=== PATIENT | female | born 1935 | race African-American/Black ===

== ENCOUNTER 2017-05-02 12:37 | Outpatient (CLI) | payer MEDICARE, MEDICAID ==
--- NOTE | 2017-05-02 13:10 | RAD ---
RADIOGRAPH CHEST 2 VIEWS: DATE: 05-02-17 HISTORY: 81-year-old female with dyspnea. FINDINGS: There is hyperinflation of the lungs, consistent with COPD. The thoracic aorta is tortuous and ectat ic. There is no evidence of air space density, pneumothorax, or pulmonary edema. There is no cardio megaly or pleural effusion. The right upper lobe 2.5 cm pulmonary mass is unchanged compared to 7. There is no interval change overall. IMPRESSION: 1) No acute cardiopulmonary findings. 2) Emphysema. 3) Ectasia of thoracic aorta. 4) Stable 2.5 cm right upper lobe pulmonary mass. rivas POS: KASEY
== END 2017-05-02 12:38 | disposition home or self-care (01) ==
LOC: RAD 12:37
PROVIDERS: ATTEND Internal Medicine Pulmonary Disease
DX: R06.00 Dyspnea, unspecified (principal); J43.9 Emphysema, unspecified; I77.810 Thoracic aortic ectasia; R91.8 Other nonspecific abnormal finding of lung field
CPT/HCPCS: 71046

== ENCOUNTER 2018-12-12 11:11 | Inpatient (IN) | payer MEDICARE, MEDICAID ==
[2018-12-12 11:44] LABS: #Eosinphils 0.1 thou/uL (0.0-0.7); #Lymphocytes 2.1 thou/uL (1.20-3.40); #Monocytes 0.6 thou/uL (0.11-0.59); #Neutrophils 7.4 thou/uL (1.40-6.50); %Basophils 0.3 % (0.0-1.0); %Eosinophils 1.1 % (0.0-10.0); %Lymphocytes 20.2 % (21.0-51.0); %Monocytes 5.5 % (0.0-10.0); Hemoglobin 12.1 g/dL (12.0-16.0); Mean Corpuscular HGB CONC 33.5 g/dL (32.0-36.0); Mean Corpuscular Hemoglobin 31.4 pg (27.0-31.0); Mean Corpuscular Volume 93.6 fL (78.0-98.0); Mean Platelet Volume 6.1 fL (7.4-10.4); Platelet Count 278 thou/uL (130-400); RBC Distribution Width 12.2 % (11.5-14.5); Red Blood Cell (RBC) Count 3.85 mill/uL (4.20-5.40); White Blood Cell (WBC) Count 10.2 thou/uL (4.8-10.8)
[2018-12-12] MEDS ORDERED: Morphine 4 MG/ML VIAL ONE (11:44)
[2018-12-12] MEDS ORDERED: Ketamine 50 MG/ML (10ML VIAL) ONE (12:05)
[2018-12-12 12:12] LABS: ALT (SGPT) 15 U/L (8-55); AST (SGOT) 29 U/L (5-34); Albumin 3.8 g/dL (3.4-4.8); Alkaline Phosphatase 143 U/L (40-150); Anion Gap 8 mmol/L (10-20); BUN (Urea Nitrogen) 15 mg/dL (9.8-20.1); Bilirubin, Total 0.3 mg/dL (0.2-1.2); Calc. Creatinine Clearance 0 mL/min (70-130); Calcium 8.9 mg/dL (7.8-10.44); Carbon Dioxide 29 mmol/L (23-31); Chloride 104 mmol/L (98-107); Estimated GFR-MDRD 79; Globulin 3.4 g/dL (2.4-3.5); Glucose 121 mg/dL (83-110); Potassium 3.8 mmol/L (3.5-5.1); Protein, Total 7.2 g/dL (6.0-8.3); Sodium 137 mmol/L (136-145)
--- NOTE | 2018-12-12 12:46 | RAD ---
EXAM: Portable supine chest PROVIDED CLINICAL HISTORY: Dyspnea COMPARISON: 05/02/2017 FINDINGS: Cardiac silhouette appears prominent, likely least partially on the basis of portable technique. Inte rval enlargement of the right suprahilar pulmonary nodule with surrounding mass/consolidation. Evaluation for pleural fluid or pneumothorax is limited given the supine nature of the study. IMPRESSION: Enlargement of right suprahilar pulmonary nodule with surrounding consolidation/mass. Correlation wit h CT recommended.
--- NOTE | 2018-12-12 12:47 | RAD ---
EXAM: XR Pelvis AP STANDARD PROVIDED CLINICAL HISTORY: Pain COMPARISON: 09/13/2018 FINDINGS: Interval development of displaced intertrochanteric right proximal femoral fracture. Age-indeterminat e right superior and inferior pubic rami fractures. Right hip joint space appears preserved. Prominent coxa varum. IMPRESSION: 1. Displaced intertrochanteric right proximal femoral fracture. 2. Age-indeterminate right superior and inferior pubic rami fractures.
[2018-12-12] MEDS ORDERED: Clindamycin/D5W 900 MG in Premix Bag 1 BAG IVPB SCH (14:15)
--- NOTE | 2018-12-12 14:46 | CON ---
DATE OF CONSULTATION: 12/12/2018 This is Areli Fuentes PA-C dictating a report for Zackery Cook MD. REQUESTING PHYSICIAN: Trauma Services. CONSULTING PHYSICIAN: Zackery Cook MD REASON FOR CONSULTATION: Right hip fracture. HISTORY OF PRESENT ILLNESS: This is an 83-year-old female who currently resides at the [facility]. She states that she was walking today, pushing a rolling type of walker with a seat on it when she suffered a mechanical fall. She denies any head injury or loss of consciousness. She was brought to emergency facility by ground EMS. Workup there revealed a right hip fracture. We have been consulted for this reason. Currently at bedside. The patient states that she has right hip pain, which is worse with any sort of movement. She had great difficulty with x-rays today. Denies any numbness or tingling in the right lower extremity. Denies any other extremity pain at this time. PAST MEDICAL HISTORY: Significant for insomnia, Raynaud's, acid reflux, depressive disorder, and breast cancer in 2012. PAST SURGICAL HISTORY: Significant for cholecystectomy and mastectomy, right breast. SOCIAL HISTORY: The patient states that she lives at the [facility]. She has been there for quite some time. She has several children in the area. She denies any history of illicit drug use or smoking cigarettes, but does state that she has chewed tobacco in the past. FAMILY HISTORY: Reviewed and noncontributory. REVIEW OF SYSTEMS: A 10-point review of systems conducted and otherwise negative except for stated above. ALLERGIES: INCLUDE PENICILLIN. PHYSICAL EXAMINATION: VITAL SIGNS: Blood pressure 176/91, pulse of 75, respiratory rate of 18, temperature 98.4, and O2 saturation is 100% on 2 L nasal cannula oxygen. GENERAL: The patient is an awake and alert. She is in no apparent distress. She is lying supine and in the ER on a stretcher at this time. There is no family at bedside. She is appropriate with exam findings today. HEENT: Head is normocephalic and atraumatic. NECK: Supple. Trachea midline. Breathing is nonlabored. EXTREMITIES: The right lower extremity was noted to be shortened. There is no ecchymosis or lesions to this thigh. SKIN: Intact. She is able to wiggle her toes. Reports sensation intact distally. Capillary refill 3 seconds. RADIOGRAPHIC FINDINGS: Including an AP pelvis taken in the ER today demonstrates an intertrochanteric right femur fracture. It also appears that there are old superior and inferior pubic rami fractures on the right side. Dedicated hip films were not obtained secondary to patient's discomfort. ASSESSMENT: Right hip intertrochanteric femur fracture. PLAN: At this time, the patient has been admitted to the Trauma Services. She will be n.p.o. after midnight. We would like to proceed with surgery in the morning including a trochanteric nail to restore function and promote mobility in this patient. She will work physical and occupational therapy postoperatively. We will get this set up for her in the morning. All questions have been answered at this time. Job ID: [id number]
--- NOTE | 2018-12-12 14:55 | HP ---
REQUESTING PHYSICIAN: Dr. Minor. ATTENDING SURGEON: Dr. Rodrigez. CONSULTATIONS: Orthopedics, Dr. Cook. HISTORY OF PRESENT ILLNESS: The patient is an 83-year-old woman, who [facility]. She was ambulating with her rolling walker today when she lost her balance and fell landing on her right hip. The patient was brought to the emergency department, underwent evaluation and examination, was noted to have a right intertrochanteric femur fracture and we were asked to evaluate the patient and obtain Orthopedic consultation. The patient had no reported loss of consciousness and denies hitting her head. The patient's only complaint is her right hip pain. ALLERGIES: PENICILLIN. CURRENT MEDICATIONS: Celexa, ibuprofen, Remeron, Tylenol, arthritis, and meclizine. PAST MEDICAL HISTORY: Breast cancer, seizure disorder, gastroesophageal reflux disease, insomnia, and Raynaud phenomenon. History of hypertension. PAST SURGICAL HISTORY: Cholecystectomy and mastectomy of right breast. SOCIAL HISTORY: The patient [facility] a jail. She ambulates with assistance utilizing a walker. She denies drug or alcohol use and previously had chewed tobacco and dipped. REVIEW OF SYSTEMS: A 10-point review of systems is negative as otherwise stated. PHYSICAL EXAMINATION: VITAL SIGNS: Blood pressure 176/91, heart rate 75, respirations are 18, oxygen saturation 100% on 2 L via nasal cannula, and temperature is 98.4. GENERAL: The patient is resting comfortably in bed. She is awake, alert, and responsive. Manisha Coma Scale is 15. HEENT: Normocephalic and atraumatic. Eyes; extraocular motion intact. PERRLA bilaterally. Ears are atraumatic without discharge. Nose is atraumatic without discharge. Oropharynx is clear. NECK: Nontender. Trachea is midline. No JVD. CHEST: Clear to auscultation with good inspiratory and expiratory effort. HEART: Regular rate and rhythm. ABDOMEN: Soft, flat, and nontender with active bowel sounds. PELVIS: Stable with tenderness to palpation to right hip consistent with her fracture. EXTREMITIES: Neurovascularly intact x4. BACK: By report is atraumatic and nontender. LABORATORY FINDINGS: White blood cell count 10.2, hemoglobin 12.1, hematocrit 36.0, and platelets are 278. Sodium 137, potassium 3.8, chloride 108, CO2 of 29, BUN 15, creatinine 0.83, and glucose 121. LFTs are unremarkable. Coags are pending. RADIOGRAPHIC REPORTS: AP chest shows an enlargement of a known right suprahilar pulmonary nodule with surrounding consolidation/mass. AP pelvis shows displaced intertrochanteric right proximal femur fracture, age indeterminate right superior inferior pubic rami fractures. ASSESSMENT: 1. Status post ground level fall. 2. Right hip fracture. 3. Acute pain secondary to above. 4. History of hypertension. 5. Gastroesophageal reflux disease. 6. Raynaud phenomenon. PLAN: Plan will be to admit the patient to the surgical floor. Per discussion with Orthopedics, the plan will be to take her to the operating room tomorrow. She will be made n.p.o. at midnight. Otherwise, she will have pain control, pulmonary toilet, gastritis, and mechanical VTE prophylaxis. We will find out who her fire truck driver is in regard to her lung mass. The evaluation, examination, laboratory, and radiographic findings were discussed with Dr. Rodrigez prior to this dictation. Job ID: [id number]
[2018-12-12] MEDS ORDERED: Dextrose 50% Abboject 50 ML SYRINGE SLOW IVP PRN (15:21)
[2018-12-12] MEDS ORDERED: Morphine 2 MG/ML SYRINGE SLOW IVP PRN (15:21)
[2018-12-12] MEDS ORDERED: hydrALAZINE 20 MG/ML VIAL SLOW IVP PRN (15:21)
[2018-12-12] MEDS ORDERED: Ondansetron ODT 4 MG TAB PO PRN (15:21)
[2018-12-12] MEDS ORDERED: Morphine 4 MG/ML VIAL SLOW IVP PRN (15:21)
[2018-12-12] MEDS ORDERED: Cyclobenzaprine 10 MG TAB PO PRN (15:21)
[2018-12-12] MEDS ORDERED: Ondansetron PF 4 MG/2 ML Vial IVP PRN (15:21)
[2018-12-12] MEDS ORDERED: traMADol HCl 50 MG TAB PO PRN ×2 (15:21)
[2018-12-12] MEDS ORDERED: Dextrose 5% in Water 1,000 ML IV PRN (15:21)
[2018-12-12 15:57] LABS: PTT 27.1 SEC (22.9-36.1); Prothrombin Time 13.4 SEC (12.0-14.7)
[2018-12-12] MEDS: Acetaminophen 1,000 MG in Premix Bag 1 BAG IVPB SCH ×2 (17:02→23:16)
[2018-12-12 18:27] VITALS: BMI 30.1
[2018-12-12] MEDS: Famotidine 20 MG TAB PO SCH (19:59)
[2018-12-12] MEDS ORDERED: Melatonin 3 MG TAB PO SCH (22:15)
[2018-12-12] MEDS: Sodium Chloride 0.9% 1,000 ML IV SCH (23:17)
--- NOTE | 2018-12-13 01:24 | PRG ---
DATE OF SERVICE: 12/13/2018 SUBJECTIVE: Ms. Alexandre is an 83-year-old female, coming for evaluation. She is status post ground level fall. She sustained right hip fracture. She was consulted by Orthopedics, in which she will be taken to the OR tomorrow for ORIF of right hip fracture. The patient reports doing good. Pain is well controlled. She developed no fever or shortness of breath. OBJECTIVE: GENERAL: She is lying down in bed, comfortable, with no acute distress. VITAL SIGNS: Stable. LUNGS: Clear bilaterally. HEART: Regular rate and rhythm. ABDOMEN: Soft, nondistended. EXTREMITIES: Neurovascularly intact x4. Right hip limited range of motion due to pain. NEUROLOGIC: No neurology deficits. PLAN: Will be to continue supportive care. Continue non-pharmacology DVT prophylaxis, gastritis prophylaxis, pulmonary toilet. She is to continue n.p.o. and prepare for surgery tomorrow. Job ID: [id number]
[2018-12-13] MEDS: Acetaminophen 1,000 MG in Premix Bag 1 BAG IVPB SCH ×2 (04:51→11:45)
[2018-12-13 06:32] LABS: #Eosinphils 0.1 thou/uL (0.0-0.7); #Lymphocytes 2.9 thou/uL (1.20-3.40); #Monocytes 0.7 thou/uL (0.11-0.59); #Neutrophils 5.7 thou/uL (1.40-6.50); %Basophils 0.4 % (0.0-1.0); %Eosinophils 1.3 % (0.0-10.0); %Lymphocytes 30.5 % (21.0-51.0); %Monocytes 7.8 % (0.0-10.0); Hemoglobin 11.3 g/dL (12.0-16.0); Mean Corpuscular HGB CONC 33.2 g/dL (32.0-36.0); Mean Corpuscular Hemoglobin 31.5 pg (27.0-31.0); Mean Corpuscular Volume 94.9 fL (78.0-98.0); Mean Platelet Volume 6.1 fL (7.4-10.4); Platelet Count 252 thou/uL (130-400); RBC Distribution Width 12.2 % (11.5-14.5); White Blood Cell (WBC) Count 9.5 thou/uL (4.8-10.8)
[2018-12-13 06:52] LABS: Anion Gap 11 mmol/L (10-20); BUN (Urea Nitrogen) 10 mg/dL (9.8-20.1); Calc. Creatinine Clearance 65 mL/min (70-130); Calcium 8.5 mg/dL (7.8-10.44); Carbon Dioxide 25 mmol/L (23-31); Chloride 104 mmol/L (98-107); Estimated GFR-MDRD 87; Glucose 106 mg/dL (83-110); Magnesium 1.8 mg/dL (1.6-2.6); Phosphorus 2.5 mg/dL (2.3-4.7); Potassium 3.8 mmol/L (3.5-5.1); Sodium 136 mmol/L (136-145)
[2018-12-13] MEDS ORDERED: Clindamycin/D5W 900 mg/50 ml Premix Bag ONE (08:45)
[2018-12-13] MEDS ORDERED: Fentanyl 100 MCG/2 ML VIAL ONE ×2 (09:09→10:41)
[2018-12-13] MEDS ORDERED: Fleet Enema 133 ML BOT PR PRN (10:20)
[2018-12-13] MEDS ORDERED: Bisacodyl 10 MG SUPP PR PRN (10:20)
[2018-12-13] MEDS ORDERED: Ondansetron PF 4 MG/2 ML Vial IVP PRN (10:20)
[2018-12-13] MEDS ORDERED: Cepastat Lozenges 1 LOZ PO PRN (10:20)
[2018-12-13] MEDS ORDERED: Ondansetron ODT 4 MG TAB PO PRN (10:20)
[2018-12-13] MEDS ORDERED: Milk Of Magnesia 30 ML UDCUP PO PRN (10:20)
[2018-12-13] MEDS ORDERED: ePHEDrine 50 MG/ML VIAL ONE (10:22)
[2018-12-13] MEDS ORDERED: Dexamethasone 20 MG/5 ML VIAL ONE (10:22)
[2018-12-13] MEDS ORDERED: Rocuronium Bromide 10 MG/ML (10ML VIAL) ONE (10:22)
[2018-12-13] MEDS ORDERED: PROPOFOL 200 MG/20 ML VIAL ONE (10:22)
[2018-12-13] MEDS ORDERED: Ondansetron PF 4 MG/2 ML Vial ONE (10:22)
[2018-12-13] MEDS ORDERED: Lidocaine 1% PF 5 ML VIAL ONE (10:22)
[2018-12-13] MEDS ORDERED: Glycopyrrolate 0.2 MG/ML 5 ML SYRINGE ONE (10:22)
[2018-12-13] MEDS ORDERED: Aspirin 81 mg Enteric Coated Tablet PO SCH (10:30)
--- NOTE | 2018-12-13 10:35 | RAD ---
EXAM: XR Hip Rt 2-3 View PROVIDED CLINICAL HISTORY: ORIF COMPARISON: 12/12/2018 FINDINGS: Interval retrograde intramedullary nail with proximal and distal interlocking screws transfixing prev iously described intertrochanteric right proximal femoral fracture with resultant improved alignment. IMPRESSION: As above.
[2018-12-13] MEDS ORDERED: Promethazine HCl 25 MG/ML VIAL SLOW IVP PRN (10:42)
[2018-12-13] MEDS ORDERED: PACU-Morphine 4MG/ML VIAL SLOW IVP PRN (10:42)
[2018-12-13] MEDS ORDERED: Morphine Sulfate 2 MG/ML SYRINGE SLOW IVP PRN (10:42)
[2018-12-13] MEDS ORDERED: Ondansetron HCl/PF 4 MG/2 ML Vial IVP PRN (10:42)
[2018-12-13] MEDS ORDERED: HYDROmorphone 2 MG/ML VIAL SLOW IVP PRN (10:42)
[2018-12-13] MEDS ORDERED: Promethazine HCl 25 MG/ML VIAL IM PRN (10:42)
[2018-12-13] MEDS ORDERED: Ketorolac Tromethamine 30 MG/ML VIAL IVP PRN (10:42)
[2018-12-13] MEDS ORDERED: Meperidine HCl/PF 25 MG/ML VIAL SLOW IVP PRN (10:42)
[2018-12-13] MEDS: Famotidine 20 MG TAB PO SCH ×2 (11:45→20:02)
[2018-12-13] MEDS: Sodium Chloride 0.9% 1,000 ML IV SCH (11:46)
[2018-12-13] MEDS: Clindamycin/D5W 900 MG in Premix Bag 1 BAG IVPB SCH ×2 (15:35→20:01)
--- NOTE | 2018-12-13 15:40 | PRG ---
DATE OF SERVICE: 12/13/2018 SUBJECTIVE: The patient is hospital day 2, immediately postop status post a ground level fall, in which she sustained a right hip fracture. She has undergone open reduction and internal fixation of same. She reportedly tolerated this procedure well. She had no reported issues overnight. This morning, she is still sleepy as having just arrived back from the PACU. OBJECTIVE: VITAL SIGNS: Temperature 97.7, heart rate 73, blood pressure 154/71, respirations 16, and oxygen saturations 100% on 2 L via nasal cannula. GENERAL: The patient is resting comfortably in bed. She appears in no distress. She is sleepy, but will awaken with verbal stimuli and appears appropriate. HEENT: Unremarkable. LUNGS: Clear to auscultation with moderate inspiratory and expiratory effort. Again, the patient is not following commands fully just yet. HEART: Regular rate and rhythm. ABDOMEN: Soft, flat, nontender with active bowel sounds. EXTREMITIES: Neurovascularly intact x4. Postop dressings are clean, dry, and intact. LABORATORY FINDINGS: White blood cell count 9.5, hemoglobin 11.3, hematocrit 34.2, and platelets 252. Sodium 136, potassium 3.8, chloride 104, CO2 of 25, BUN 10, creatinine 0.77, glucose 106, magnesium 1.8, and phosphorus 2.5. IMAGING STUDIES: There are no radiographs reviewed this morning. ASSESSMENT AND PLAN: 1. Status post ground level fall. 2. Status post open reduction and internal fixation of right hip fracture. 3. Acute pain secondary to above. 4. History of hypertension. 5. History of gastroesophageal reflux disease. 6. History of Raynaud phenomenon. Plan will be to continue supportive care, diet, p.o. pain medication, and begin working with Physical and Occupational Therapy. We will discuss placement options with Case Management. The patient was evaluated this morning with Dr. Rodrigez. Job ID: [id number]
[2018-12-13] MEDS: Acetaminophen 500 MG TAB PO SCH ×2 (18:43→23:21)
[2018-12-13] MEDS: Ferrous Gluconate 324 MG TAB PO SCH (20:01)
[2018-12-13] MEDS: Aspirin 81 mg Enteric Coated Tablet PO SCH (20:01)
[2018-12-13] MEDS: Senokot S 8.6-50 MG TAB PO SCH (20:02)
[2018-12-13] MEDS: Mirtazapine 15 MG TAB PO SCH (20:02)
[2018-12-13] MEDS ORDERED: diphenhydrAMINE 50 MG/ML VIAL IVP SCH (22:00)
--- NOTE | 2018-12-14 00:05 | PRG ---
DATE OF SERVICE: 12/13/2018 SUBJECTIVE: Ms. Alexandre is an 83-year-old female status post ground level fall. She sustained right hip fracture. She underwent ORIF of right hip fracture today. This evening when I had seen her, she developed delirium. She was getting angry and did not want to have the VTE device on. She did not want her sock to be on. She wanted to get out of bed and walk around. She had some sort of hallucination when she said that she hears somebody out of the door and combative. Fall precaution order was on. She was given 25 mg Benadryl IV. She has been stable after that. OBJECTIVE: VITAL SIGNS: Stable. LUNGS: Clear bilaterally. HEART: Regular rate and rhythm. ABDOMEN: Soft, nondistended. EXTREMITIES: The patient moves all 4 extremities. NEURO: No focal neurology deficits, but reveals dressing of right hip was loose. The patient will be . PLAN: Will be to continue supportive care. We will discontinue tramadol due to possibility tramadol might cause delirium in postoperative patients and continue fall precaution. Job ID: [id number]
[2018-12-14] MEDS: Acetaminophen 500 MG TAB PO SCH ×3 (06:40→17:44)
[2018-12-14 07:32] LABS: Hemoglobin 10.8 g/dL (12.0-16.0); Mean Corpuscular HGB CONC 32.9 g/dL (32.0-36.0); Mean Corpuscular Volume 94.3 fL (78.0-98.0); Mean Platelet Volume 6.3 fL (7.4-10.4); Platelet Count 258 thou/uL (130-400); RBC Distribution Width 12.2 % (11.5-14.5); Red Blood Cell (RBC) Count 3.49 mill/uL (4.20-5.40); White Blood Cell (WBC) Count 12.8 thou/uL (4.8-10.8)
[2018-12-14] MEDS ORDERED: Meclizine HCl 12.5 MG TAB PO PRN (07:49)
[2018-12-14 07:54] LABS: Anion Gap 11 mmol/L (10-20); BUN (Urea Nitrogen) 13 mg/dL (9.8-20.1); Calc. Creatinine Clearance 61 mL/min (70-130); Calcium 8.9 mg/dL (7.8-10.44); Carbon Dioxide 27 mmol/L (23-31); Chloride 103 mmol/L (98-107); Estimated GFR-MDRD 81; Glucose 100 mg/dL (83-110); Potassium 3.9 mmol/L (3.5-5.1); Sodium 137 mmol/L (136-145)
[2018-12-14] MEDS: Famotidine 20 MG TAB PO SCH ×2 (08:41→20:43)
[2018-12-14] MEDS: Aspirin 81 mg Enteric Coated Tablet PO SCH ×2 (08:41→20:42)
[2018-12-14] MEDS: Ferrous Gluconate 324 MG TAB PO SCH ×2 (08:41→20:43)
[2018-12-14] MEDS: Multivitamin W/ Minerals 1 TAB PO SCH (08:41)
[2018-12-14] MEDS: Citalopram 20 MG TAB PO SCH (08:41)
[2018-12-14] MEDS: Senokot S 8.6-50 MG TAB PO SCH ×2 (08:41→20:43)
[2018-12-14] MEDS: Ibuprofen 600 MG TAB PO PRN ×2 (12:28→20:43)
--- NOTE | 2018-12-14 19:09 | PRG ---
DATE OF SERVICE: 12/14/2018 SUBJECTIVE: The patient is hospital day , postop day #1, status post ground level fall when she sustained a right hip fracture. Yesterday, she underwent open reduction and internal fixation of same. She tolerated that well. Overnight, she had some issues with being disoriented and reportedly pulled her Wilburn catheter out. After being given some IV Benadryl, the patient was able to relax and rest for the remainder of the night. This morning, there were no reported issues. The patient has voided without any hematuria noted, and she states this morning that her pain is controlled. At the time of my visit, she has not eaten breakfast yet. OBJECTIVE: VITAL SIGNS: Temperature is 98.9, heart rate 67, blood pressure 112/70, respirations 18, and oxygen saturation 95% on room air. GENERAL: The patient is resting comfortably in bed. She is awake, oriented, and appropriate. HEENT: Unremarkable. LUNGS: Clear to auscultation with good inspiratory and expiratory effort. HEART: Regular rate and rhythm. ABDOMEN: Soft, flat, nontender with active bowel sounds. EXTREMITIES: Neurovascularly intact x4. Postop dressing is clean, dry, and intact. LABORATORY FINDINGS: White blood cell count 12.8, hemoglobin 10.8, hematocrit 32.9, and platelets 258. Sodium 137, potassium 3.9, chloride 103, CO2 of 27, BUN 13, creatinine 0.82, and glucose 100. There are no radiographs reviewed this morning. ASSESSMENT AND PLAN: 1. Status post ground level fall, hospital day . 2. Status post open reduction and internal fixation of right hip fracture, postop day #1. 3. Acute pain secondary to above. 4. History of hypertension, gastroesophageal reflux disease, Raynaud phenomena. Plan will be to continue supportive care, physical and occupational therapy, and we will discuss placement with Case Management tomorrow to see what options are available for the patient as she came from a long-term. Job ID: [id number]
[2018-12-14] MEDS: Mirtazapine 15 MG TAB PO SCH (20:43)
[2018-12-14] MEDS: Melatonin 3 MG TAB PO SCH (20:44)
--- NOTE | 2018-12-15 00:56 | PRG ---
DATE OF SERVICE: 12/15/2018 SUBJECTIVE: Ms. Alexandre is an 83-year-old female, status post ground level fall. She sustained right hip fracture. She underwent ORIF of right hip fracture yesterday. Last night, she developed delirium, however, today she is getting better. She do not have any hallucination or irritation. OBJECTIVE: GENERAL: She is lying down in bed, comfortably with no acute distress. VITAL SIGNS: Stable. LUNGS: Clear bilaterally. HEART: Regular rate and rhythm. ABDOMEN: Soft and nondistended. EXTREMITIES: Neurovascularly intact x4. NEUROLOGIC: No focal neurology deficits. PLAN: Will be continue supportive care. Continue pain control. The patient's bilingual case manager will be working with her to determine if her old snf facility have physical therapy, so she can go back, bilingual case manager needs to find a new [facility]ci facility for her. Job ID: [id number]
[2018-12-15] MEDS: Acetaminophen 500 MG TAB PO SCH ×5 (01:16→23:46)
[2018-12-15] MEDS: Ibuprofen 600 MG TAB PO PRN ×3 (05:36→23:47)
[2018-12-15 07:18] LABS: Phosphorus 2.7 mg/dL (2.3-4.7)
[2018-12-15 07:20] LABS: Mean Corpuscular HGB CONC 33.5 g/dL (32.0-36.0); Mean Corpuscular Hemoglobin 31.2 pg (27.0-31.0); Mean Corpuscular Volume 93.4 fL (78.0-98.0); Mean Platelet Volume 6.5 fL (7.4-10.4); Platelet Count 262 thou/uL (130-400); RBC Distribution Width 12.1 % (11.5-14.5); Red Blood Cell (RBC) Count 3.51 mill/uL (4.20-5.40); White Blood Cell (WBC) Count 10.8 thou/uL (4.8-10.8)
[2018-12-15 07:24] LABS: Anion Gap 12 mmol/L (10-20); BUN (Urea Nitrogen) 16 mg/dL (9.8-20.1); Calc. Creatinine Clearance 59 mL/min (70-130); Calcium 9.3 mg/dL (7.8-10.44); Carbon Dioxide 28 mmol/L (23-31); Chloride 103 mmol/L (98-107); Estimated GFR-MDRD 77; Glucose 90 mg/dL (83-110); Magnesium 1.9 mg/dL (1.6-2.6); Potassium 3.6 mmol/L (3.5-5.1); Sodium 139 mmol/L (136-145)
[2018-12-15] MEDS: Famotidine 20 MG TAB PO SCH ×2 (08:57→20:13)
[2018-12-15] MEDS: Senokot S 8.6-50 MG TAB PO SCH ×2 (08:57→20:13)
[2018-12-15] MEDS: Aspirin 81 mg Enteric Coated Tablet PO SCH ×2 (08:58→20:13)
[2018-12-15] MEDS: Multivitamin W/ Minerals 1 TAB PO SCH (08:58)
[2018-12-15] MEDS: Ferrous Gluconate 324 MG TAB PO SCH ×2 (08:58→20:14)
[2018-12-15] MEDS: Citalopram 20 MG TAB PO SCH (08:58)
--- NOTE | 2018-12-15 10:45 | OP ---
DATE OF PROCEDURE: 12/13/2018 DIE STAMPER: Codey Shields PA-C PREOPERATIVE DIAGNOSIS: Right intertrochanteric hip fracture. POSTOPERATIVE DIAGNOSIS: Right intertrochanteric hip fracture. PROCEDURE PERFORMED: Right intertrochanteric fracture, internal fixation with Synthes trochanteric femoral nail, 10 mm diameter with a 105 lag screw and a 34 locking screw. ESTIMATED BLOOD LOSS: Minimal. SPECIMENS: None. DRAINS: None. COMPLICATIONS: None. PROCEDURE IN DETAIL: After informed consent was obtained in the preoperative holding area, the patient was taken to the operative suite and positioned appropriately on the fracture table. Spinal anesthetic was placed and the right hip was then prepped and draped in the usual sterile fashion. Prior to incision, a time-out was called and all members of surgical team agreed upon site, surgeon, and patient. Patient also received preoperative antibiotics prior to incision. Once this was confirmed, fluoroscopy was brought into the field and we evaluated the reduction. The fracture table was used with inline longitudinal traction and adduction to appropriately reduce the fracture. Once we were happy with near anatomic reduction, we then made a linear incision 2 fingerbreadths above the greater trochanter noted by palpation. The subcutaneous layers were opened sharply. I encountered the IT band. This was incised sharply and blunt dissection using a finger was then carried down to the trochanter which was noted by palpation. We used a guidepin to enter the posterior 2/3 of the greater trochanter. Guidepin was then used to enter the canal, over reamed with a 15 mm entry reamer. Once this was established, the prosthesis was then slid down into place and malleted gently to the adequate height and noted with fluoroscopy. The lateral entry outrigger was then placed and we used a 2-incision technique to establish the hip screw fixation point. A guidepin was then placed into the femoral head using the outrigger. The measurement was taken. The appropriate size was chosen. Lateral entry broaching reamer was then used using the outrigger and the final screw was then placed. The anti-rotational gate was then closed and the distal interlocking screw was placed for final construct, which appeared near anatomic on radiographs. Both incisions (2-incision technique) were copiously irrigated with normal saline. Primary closure was accomplished with #1 Vicryl at the IT band. Subcutaneous layer was closed with 2-0 Vicryl, and stainless steel refugio were used to reapproximate the skin. Final x-rays demonstrated near anatomic reduction, good hardware fixation. The procedure was terminated without any complications. The patient was taken to recovery room in stable condition. Job ID: [id number]
--- NOTE | 2018-12-15 14:38 | PRG ---
DATE OF SERVICE: 12/15/2018 SUBJECTIVE: The patient is postop day 2, status post ORIF of right hip after right hip fracture from a ground level fall. She is better overnight with irritation. With PT today, reportedly is making progress with her gait, functional mobility, endurance, and strength. Though, she has not met any of her goals yet. Per report, the patient took some steps, is able to benefit from continued PT, and will require halfway unit after discharge. Orders were placed to discontinue her yanes catheter today. OBJECTIVE: VITAL SIGNS: Temperature 98.7 Fahrenheit, pulse 70s, respiratory rate 16 to 20, oxygen saturation 96% on room air, blood pressure 161/83. GENERAL: The patient is resting comfortably in bed. HEENT: Unremarkable. LUNGS: Clear to auscultation bilaterally with good inspiratory and expiratory effort. HEART: Regular rate and rhythm. No murmurs appreciated. ABDOMEN: Soft, flat, nontender. Active bowel sounds. EXTREMITIES: Postop dressing clean, dry, intact. LABORATORY DATA: White blood cell count 10.8, hemoglobin 11.0, hematocrit 32.8, platelets 262. Sodium 139, potassium 3.6, chloride 103, carbon dioxide 28, BUN 15, creatinine 0.85, glucose 90, calcium 9.3, phosphorus 2.7, magnesium 1.9. ASSESSMENT: 1. Postop day 2, status post open reduction and internal fixation of right hip fracture, status post ground level fall. 2. Acute pain secondary to above. 3. History of hypertension. 4. Gastroesophageal reflux disease. 5. Raynaud phenomenon. PLAN: 1. Continue supportive care. 2. Continue PT/OT. 3. Rehab screen ordered. We will continue to discuss with Case Management for continued PT upon discharge. The patient was seen and evaluated by Dr. Deng during morning rounds. Discussed plan of care with the patient and family who are in agreement. Job ID: [id number] MTDD
[2018-12-15] MEDS: Melatonin 3 MG TAB PO SCH (20:13)
[2018-12-15] MEDS: Mirtazapine 15 MG TAB PO SCH (20:13)
--- NOTE | 2018-12-16 01:15 | PRG ---
DATE OF SERVICE: SUBJECTIVE: Ms. Alexandre is an 83-year-old female, status post ground-level fall. She sustained right hip fracture. She underwent ORIF of right hip fracture. Postop, the patient did develop one episode of delirium. After that, she was getting better. OBJECTIVE: GENERAL: This evening, on rounds, she is alert, awake, and answers question appropriately. VITAL SIGNS: Stable. LUNGS: Clear bilaterally. HEART: Regular rate and rhythm. ABDOMEN: Soft and nondistended. EXTREMITIES: Neurovascularly intact x4. No focal neurological deficits. PLAN: Plan will be to continue supportive care and continue PT/OT. The patient is waiting for placement. Job ID: [id number]
[2018-12-16] MEDS: Acetaminophen 500 MG TAB PO SCH ×3 (05:52→18:03)
[2018-12-16 05:53] LABS: Mean Corpuscular HGB CONC 33.9 g/dL (32.0-36.0); Mean Corpuscular Hemoglobin 31.7 pg (27.0-31.0); Mean Corpuscular Volume 93.4 fL (78.0-98.0); Mean Platelet Volume 6.2 fL (7.4-10.4); Platelet Count 281 thou/uL (130-400); RBC Distribution Width 12.3 % (11.5-14.5); Red Blood Cell (RBC) Count 3.47 mill/uL (4.20-5.40); White Blood Cell (WBC) Count 11.7 thou/uL (4.8-10.8)
[2018-12-16 06:11] LABS: Anion Gap 12 mmol/L (10-20); BUN (Urea Nitrogen) 15 mg/dL (9.8-20.1); Calc. Creatinine Clearance 60 mL/min (70-130); Calcium 8.9 mg/dL (7.8-10.44); Carbon Dioxide 26 mmol/L (23-31); Chloride 104 mmol/L (98-107); Estimated GFR-MDRD 78; Glucose 85 mg/dL (83-110); Potassium 3.4 mmol/L (3.5-5.1); Sodium 139 mmol/L (136-145)
[2018-12-16] MEDS ORDERED: Potassium Chloride 20 MEQ TAB PO SCH (06:30)
[2018-12-16 07:04] LABS: Magnesium 1.9 mg/dL (1.6-2.6); Phosphorus 3.4 mg/dL (2.3-4.7)
[2018-12-16] MEDS ORDERED: Magnesium 2 GM/50 ML 2 GM in Premix Bag 1 BAG IVPB SCH (07:45)
[2018-12-16] MEDS ORDERED: Amlodipine 5 MG TAB PO SCH (09:00)
[2018-12-16] MEDS: Aspirin 81 mg Enteric Coated Tablet PO SCH ×2 (09:26→20:13)
[2018-12-16] MEDS: Senokot S 8.6-50 MG TAB PO SCH ×2 (09:27→20:13)
[2018-12-16] MEDS: Citalopram 20 MG TAB PO SCH (09:27)
[2018-12-16] MEDS: Ferrous Gluconate 324 MG TAB PO SCH ×2 (09:27→20:15)
[2018-12-16] MEDS: Famotidine 20 MG TAB PO SCH ×2 (09:27→20:14)
[2018-12-16] MEDS: Multivitamin W/ Minerals 1 TAB PO SCH (09:28)
[2018-12-16] MEDS: Lisinopril 10 MG TAB PO SCH (09:42)
--- NOTE | 2018-12-16 15:01 | PRG ---
DATE OF SERVICE: 12/16/2018 SUBJECTIVE: The patient is an 83-year-old female, hospital day 5, postop day 3, status post ORIF of right hip after a right hip fracture from a ground-level fall. She did well overnight. The patient had a blood pressure of 175/78 during the night and 2.5 mg amlodipine was added. The patient lives at [facility], met with Case Management today, referral sent for rehab today. The patient is continuing to void after discontinuation of her Wilburn yesterday. The patient reports her pain is well controlled today. Magnesium sulfate and potassium phosphate were ordered today to replete her electrolytes. OBJECTIVE: VITAL SIGNS: T-max 98.7 Fahrenheit, pulse 70s, respiratory rate 14 to 16, 96% oxygen saturation on room air, blood pressure 125/73. GENERAL: The patient is resting comfortably in bed. HEENT: Unremarkable. LUNGS: Clear to auscultation bilaterally. HEART: Regular rate and rhythm. ABDOMEN: Soft, flat, and nontender. Active bowel sounds. EXTREMITIES: Postop wound clean, dry, and intact. LABORATORY FINDINGS: White blood cell count 11.7, hemoglobin 11.0, hematocrit 32.4, platelets 281. Sodium 139, potassium 3.4, chloride 104, carbon dioxide 26, BUN 15, creatinine 0.84, glucose 85, calcium 8.9, phosphorus 3.4, magnesium 1.9. ASSESSMENT: 1. Postoperative day 3, status post open reduction and internal fixation of right hip fracture, status post ground-level fall. 2. Acute pain secondary to above. 3. History of hypertension, gastroesophageal reflux disease, and Raynaud phenomenon. PLAN: 1. Continue supportive care. 2. Continue PT/OT. 3. Continue to replete electrolytes as needed. 4. BP controlled well at this time, continue amlodipine. 5. Rehab referral sent today, we will continue to discuss with Case Management for placement for continued PT upon discharge. The patient was seen and evaluated by Dr. Rodrigez during morning rounds. Discussed plan of care with the patient and family who are in agreement. Job ID: [id number] [facility]
[2018-12-16] MEDS: Melatonin 3 MG TAB PO SCH (20:14)
[2018-12-16] MEDS: Mirtazapine 15 MG TAB PO SCH (20:15)
--- NOTE | 2018-12-16 22:30 | PRG ---
DATE OF SERVICE: 12/16/2018 SUBJECTIVE: This is an 83-year-old female hospital day #5, postop day #3 status post ORIF of right hip after a right hip fracture from a ground level fall. The patient is awake and alert, lying in hospital bed, in no distress. The patient reports that her pain is well controlled at this time. The patient voices no complaints or concerns at this time. The patient continues to tolerate a regular diet. OBJECTIVE: VITAL SIGNS: Stable, remains afebrile. RESPIRATORY: Equal chest rise and fall. No respiratory distress. EXTREMITIES: Moves all extremities. Distal pulses intact. Right hip dressing clean, dry, and intact. IMPRESSION: 1. Postop day #3, status post open reduction and internal fixation of right hip fracture, status post ground level fall. 2. Acute pain secondary to above. 3. History of hypertension, gastroesophageal reflux disease, and Raynaud phenomenon. PLAN: Continue supportive care. Continue PT/OT. The patient has pending placement to inpatient rehab. The plan has been discussed with the patient who agrees. Job ID: [id number]
[2018-12-17] MEDS: Acetaminophen 500 MG TAB PO SCH ×5 (00:52→18:38)
[2018-12-17] MEDS: Senokot S 8.6-50 MG TAB PO SCH ×2 (08:38→20:01)
[2018-12-17] MEDS: Aspirin 81 mg Enteric Coated Tablet PO SCH ×2 (08:38→20:02)
[2018-12-17] MEDS: Ferrous Gluconate 324 MG TAB PO SCH ×2 (08:38→20:01)
[2018-12-17] MEDS: Famotidine 20 MG TAB PO SCH ×2 (08:38→20:02)
[2018-12-17] MEDS: Citalopram 20 MG TAB PO SCH (08:38)
[2018-12-17] MEDS: Lisinopril 10 MG TAB PO SCH (08:39)
[2018-12-17] MEDS: Multivitamin W/ Minerals 1 TAB PO SCH (08:39)
[2018-12-17] MEDS: Ibuprofen 600 MG TAB PO PRN (08:50)
--- NOTE | 2018-12-17 12:29 | PRG ---
DATE OF SERVICE: 12/17/2018 SUBJECTIVE: The patient is an 83-year-old female, hospital day #6, postop day # 4, status post ORIF of right hip after right hip fracture from a ground level fall. She did well overnight. She lives at [facility], referral to rehab sent yesterday, pending. The patient reports her pain is well controlled today. OBJECTIVE: VITAL SIGNS: T-max 98.6 Fahrenheit, pulse 86, respiratory rate 16, 97% on room air, and blood pressure 124/72. GENERAL: The patient is resting comfortably in bed, working cooperatively with PT. HEENT: Unremarkable. LUNGS: Clear to auscultation bilaterally with good inspiratory and expiratory effort. HEART: Regular rate and rhythm. No murmurs appreciated. ABDOMEN: Soft, flat, and nontender. Active bowel sounds. EXTREMITIES: Postop wound clean, dry, and intact. LABORATORY DATA: No new labs to report today. ASSESSMENT: 1. Postop day #4, status post open reduction and internal fixation of right hip fracture, status post ground level fall. 2. Acute pain secondary to above, well controlled. 3. History of hypertension, gastroesophageal reflux disease, and Raynaud phenomenon. PLAN: 1. Continue supportive care. 2. Continue PT/OT. 3. BP well controlled at this time, continue amlodipine. 4. Rehab referral sent yesterday, placement pending. The patient was seen and evaluated by Dr. Rodrigez during morning rounds. Discussed plan of care with the patient and family, who were in agreement. Job ID: [id number] MTDD
[2018-12-17] MEDS: Mirtazapine 15 MG TAB PO SCH (20:01)
[2018-12-17] MEDS: Melatonin 3 MG TAB PO SCH (20:02)
--- NOTE | 2018-12-17 22:56 | PRG ---
DATE OF SERVICE: 12/17/2018 SUBJECTIVE: This is an 83-year-old female, hospital day #6, postop day #4, status post open reduction and internal fixation of her right hip after a right hip fracture from a ground level fall. The patient is awake, alert, lying in hospital bed. The patient is in no distress and denies any pain at this time. The patient voices no complaints or concerns at this time. The patient continues to tolerate a regular diet. OBJECTIVE: VITAL SIGNS: Stable, remains afebrile. IMPRESSION: 1. Postop day #4, status post open reduction and internal fixation of right hip fracture, status post ground level fall. 2. Acute pain secondary to above. 3. History of hypertension, gastroesophageal reflux disease, and Raynaud phenomenon. PLAN: Continue supportive care. Continue physical and occupational therapy. The patient is pending placement to inpatient rehab. The plan has been discussed with the patient, who agrees. Job ID: [id number]
[2018-12-18] MEDS: Acetaminophen 500 MG TAB PO SCH ×2 (05:56→11:20)
[2018-12-18] MEDS: Ferrous Gluconate 324 MG TAB PO SCH (08:31)
[2018-12-18] MEDS: Senokot S 8.6-50 MG TAB PO SCH (08:31)
[2018-12-18] MEDS: Ibuprofen 600 MG TAB PO PRN (08:31)
[2018-12-18] MEDS: Lisinopril 10 MG TAB PO SCH (08:31)
[2018-12-18] MEDS: Aspirin 81 mg Enteric Coated Tablet PO SCH (08:31)
[2018-12-18] MEDS: Citalopram 20 MG TAB PO SCH (08:31)
[2018-12-18] MEDS: Multivitamin W/ Minerals 1 TAB PO SCH (08:32)
[2018-12-18 10:52] VITALS: BP 101/63; TEMP 98.5
--- NOTE | 2018-12-19 08:32 | DIS ---
DATE OF ADMISSION: 12/12/2018 DATE OF DISCHARGE: 12/18/2018 ADMISSION DIAGNOSES: 1. Mechanical fall from standing. 2. Right intertrochanteric femur fracture. DISCHARGE DIAGNOSES: 1. Mechanical fall from standing. 2. Right intertrochanteric femur fracture. CONSULTING PHYSICIAN: Dr. Cook of Orthopedic Surgery. PROCEDURES: The patient went to the OR on December 13, 2018, and received an internal fixation with intertrochanteric nail and screw to the right intertrochanteric femur fracture by Dr. Cook. HOSPITAL COURSE: The patient is an 83-year-old female who presented to the emergency department after a mechanical fall. She was found to have a right intertrochanteric femur fracture. She was admitted to the Trauma Service and went to the OR on December 13 for fixation of the right intertrochanteric femur fracture. At the time of discharge, the patient was back on all of her home medications. She was also started on lisinopril at that time. She was tolerating a diet, pain was well controlled, voiding and having bowel movements without difficulties and working with Physical Therapy at the time of discharge. She was discharged to a rehab facility. DISCHARGE DISPOSITION: Acute rehab. DISCHARGE CONDITION: Satisfactory. PHYSICAL EXAMINATION: VITAL SIGNS: Temperature 98.5, pulse 72, respirations 18, oxygen saturation 96% on room air, blood pressure 101/65. GENERAL: Well-appearing elderly female with no signs of acute distress. PULMONARY: Equal chest rise and fall. Clear breath sounds bilaterally. No signs of acute respiratory distress. CARDIAC: Regular rate and rhythm. No murmurs, gallops, or rubs. GASTROINTESTINAL: Abdomen soft, nontender, and nondistended. EXTREMITIES: 2+ pulses in all extremities. Gross motor and sensation are intact. No significant swelling noted. NEURO: GCS is 15. DISCHARGE INSTRUCTIONS: The patient was discharged to acute rehab facility. Activity as tolerated. She is weightbearing as tolerated to all extremities with hip precautions. She has a regular diet with Ensure b.i.d. She is to receive occupational and physical therapy. She will have incentive spirometry, a wheelchair and a walker. DISCHARGE MEDICATIONS: The patient was discharged with; 1. Tylenol. 2. Aspirin. 3. Celexa. 4. Flexeril. 5. Fergon. 6. Ibuprofen. 7. Lisinopril. 8. Melatonin. 9. Remeron. 10. Multivitamins with minerals. 11. Senokot S. FOLLOWUP APPOINTMENTS: The patient is to follow up with Dr. Cook in 2-3 weeks. No need to follow up with Dr. Rodrigez. The patient also has an appointment with Dr. Quezada on December 26, 2018. This is merely a summary of the patient's hospitalization. For full details, please see her medical record in its entirety. Job ID: [id number]
--- NOTE | 2018-12-20 13:12 | EKG ---
Test Reason : Blood Pressure : / mmHG Vent. Rate : 061 BPM Atrial Rate : 061 BPM P-R Int : 218 ms QRS Dur : 078 ms QT Int : 418 ms P-R-T Axes : 084 -59 046 degrees QTc Int : 420 ms Sinus rhythm with 1st degree A-V block Pulmonary disease pattern Left anterior fascicular block Abnormal ECG Confirmed by MELIDA MONTEIRO ([id number]), clinical editor CHOLO CORDOVA ([id number]) on 12/20/2018 1:11:34 PM Referred By: Confirmed By:MELIDA MONTEIRO
== END 2018-12-18 14:35 | DRG 482 ==
LOC: ERS 11:11 → SURG B 13:12
PROVIDERS: ADMIT Surgery; ATTEND Surgery
PROC: 0QS604Z Reposition Right Upper Femur with Internal Fixation Device, Open Approach (ICD-10-PCS; principal; 2018-12-13)
DX: S72.141A Displaced intertrochanteric fracture of right femur, initial encounter for closed fracture (principal); K21.9 Gastro-esophageal reflux disease without esophagitis; G47.00 Insomnia, unspecified; I10 Essential (primary) hypertension; W18.30XA Fall on same level, unspecified, initial encounter; I73.00 Raynaud's syndrome without gangrene; Z88.0 Allergy status to penicillin; Z85.3 Personal history of malignant neoplasm of breast; Z90.49 Acquired absence of other specified parts of digestive tract; Z90.11 Acquired absence of right breast and nipple; Y92.129 Unspecified place in nursing home as the place of occurrence of the external cause; R41.0 Disorientation, unspecified
CPT/HCPCS: 36415; 71045; 72170; 76000; 80048; 80053; 83735; 84100; 85025; 85027; 85610; 85730; 93005; 96361; 96374; 96375; C1713; C1769; G0390; J0131; J0690; J1100; J1200; J2001; J2270; J2405; J2704; J3010; J3475; J3490; J7050

== ENCOUNTER 2019-02-05 11:54 | Outpatient (CLI) | payer MEDICARE, MEDICAID ==
--- NOTE | 2019-02-05 13:00 | RAD ---
TWO VIEW CHEST: COMPARISON: Comparison is made to recent portable chest of 12/12/2018 and a prior 2-view chest 05/02/2017. FINDINGS: The enlarging right upper lobe mass is again seen. There is surrounding infiltrate suggesting superi mposed pneumonia. Left lung appears clear. Heart and mediastinum unremarkable. IMPRESSION: Right upper lobe mass is enlarged since 2018. There is right upper lobe infiltrate now apparent. No t significantly changed from the recent exam of 12/12/2018. POS: [facility]
== END 2019-02-05 11:55 | disposition home or self-care (01) ==
LOC: BICRAD 11:54
PROVIDERS: ATTEND Specialist
DX: N63.10 Unspecified lump in the right breast, unspecified quadrant (principal); R91.8 Other nonspecific abnormal finding of lung field
CPT/HCPCS: 36415; 71046; 80053; 85025

== ENCOUNTER 2019-03-02 14:30 | Outpatient (CLI) | payer MEDICARE, MEDICAID ==
--- NOTE | 2019-03-02 15:32 | PET ---
Radionucleotide PET scan with CT attenuation correction HISTORY: Breast cancer. Right breast cancer upper outer quadrant. Lung mass. FINDINGS: Correlated with prior PET 03/13/2016. FINDINGS: The lobular soft tissue density mass within the posterior aspect of the right upper lobe ab utting the major fissure is measured at 3.3 cm x 2.6 cm greatest diameters on the axial images of today's nondiagnostic CT attenuation correction images. Maximum SUV associated with the mass is is 2.5. An ill-defined patchy nodular infiltrate extends superiorly from the mass, towards the right apex. At the far superior margin, hypermetabolic activity is present with a maximum SUV of 4.0. Postoperative changes of the right breast are apparent. Increased uptake at and immediately posterior to the right nipple shows maximum SUV of 6.5. The increased signal extends into the right pectoralis musculature. More laterally and inferiorly within the right breast, ill-defined area of in creased uptake shows a maximum SUV of 5.0. Increased uptake about the right hip shows maximum SUV of 5.1. Consistent with recent fracture and mckeon rgery. Nondiagnostic CT attenuation correction images show emphysematous changes of the lungs. Calcification within the coronary arteries. Gallbladder is surgically absent. Tiny calcification at the posterior aspect of the inferior pole left kidney. Large cyst at the superior pole of the left kidney . Tiny angiomyolipoma along the lateral cortex of the right kidney. Large lobular intramuscular lipoma at the right posterior paraspinal musculature. Diverticula of the colon without adjacent infla mmation. Old left rib fractures and old pelvic fractures. IMPRESSION: Hypermetabolic activity of the right breast. Residual neoplasm versus postoperative villarreal es. The dominant right upper lobe lung mass is of borderline hypermetabolic activity with a maximum SUV o f 2.5. There is nodular infiltrate extending to the right lung apex, where definite hypermetabolic activity is present. If patient is not acting as if she has a right upper lobe pneumonitis, then neop lasm is very likely. Metastatic disease versus primary lung neoplasm, however, is not clear. Increased radiotracer uptake about the right hip consistent with recent injury and surgery. Incidental-type findings on the CT as detailed above.
== END 2019-03-02 14:31 | disposition home or self-care (01) ==
LOC: PET 14:30
PROVIDERS: ATTEND Internal Medicine Medical Oncology
DX: C50.411 Malignant neoplasm of upper-outer quadrant of right female breast (principal); R91.8 Other nonspecific abnormal finding of lung field; Z98.890 Other specified postprocedural states
CPT/HCPCS: 78815; A9552

== ENCOUNTER 2019-09-21 08:23 | Outpatient (CLI) | payer MEDICARE, MEDICAID ==
--- NOTE | 2019-09-21 10:11 | CT ---
CT CHEST AND ABDOMEN AND PELVIS WITH IV CONTRAST: INDICATION: History of right breast cancer. Mass in right back noted on order. Previous CT chest from 02/09/2016 demonstrated a right lung mass. COMPARISON: Comparison is made to the CT chest of 02/09/2016. There are no prior CT abdomen and pelvis exams. FINDINGS: CT CHEST: The mass which was previously described on the prior CT in the right upper lobe along the fissure is again seen and has enlarged significantly since 2016. This mass now measures up to 3.7 cm axial plan e. It previously measured approximately 2.0 cm. There is increasing surrounding inflammatory-appear ing infiltrate seen peripheral to this mass in the right upper lobe extending to the pleural surface. A PET scan performed 03/13/2016 showed no metabolic activity within this mass. Followup CT was thanh mmended at that time. Two calcified granuloma in the posterior gutter right lung base again seen and appears stable. There are other tiny noncalcified nodules seen in the right upper and right lower lobe measuring in the 3 mm range. There is a 1.0 nodular density in the posterior gutter right lung base abutting pleural mckeon rface. This nodular opacity is stable when compared to the 02/09/2016 exam. The left lung appears cl ear. Mediastinum shows no evidence of adenopathy. The esophagus is mildly distended in the mid chest. Os seous structures showed degenerative spine changes. Mild wedging of the T8 vertebra. Review of the chest wall shows evidence of a right mastectomy. There is a subcutaneous mass density which appears to produce skin retraction at the mastectomy site in the lateral right chest wall. Thi s density measures 2.8 cm in the AP dimension. This is a new finding when compared to prior study. Recurrent neoplasm at this site should be excluded. IMPRESSION: 1. Enlargement of the soft tissue mass in the right upper lobe when compared to the prior CT of 02/08. There is associated parenchymal infiltrative-appearing opacity which extends peripheral to th is mass in the right upper lobe to the pleural surface. Suggest followup PET scan to reassess activi ty within this mass which is concerning for neoplasm. Correlate clinically regarding coexisting infl ammatory process in the right upper lobe. If there are no clinical signs of pneumonia, this may repr esent parenchymal spread of neoplasm. 2. Chest wall mass on the right at the mastectomy site with skin retraction concerning for recurrent neoplasm. Biopsy of this site is recommended. CT ABDOMEN AND PELVIS: The liver, spleen, and pancreas appear unremarkable. The patient is post cholecystectomy. There is mild biliary duct prominence which probably is on the basis of post cholecystectomy status. A large cyst involving the superior left kidney measuring 4.0 cm is stable from the prior CT. There is a low-density lesion involving the inferior lateral cortex of the right kidney which measure s approximately 8-10 mm. This lesion has fat density within and would be consistent with an angiomye lipoma. The kidneys otherwise appear unremarkable. No hydronephrosis or urinary calculus. Small bowel loops normal. Colon unremarkable. Aorta shows calcified with no evidence of aneurysm. No adenopathy. Images through the pelvis show an enlarged heterogeneous uterus with the fundus deviated to the left with an area of low attenuation in the uterine fundus measuring up to 3 cm consistent with uterine fi broid. Adnexa appear unremarkable. The urinary bladder is mildly distended and appears unremarkable . There is a fat-density mass involving the paraspinal musculature on the right which would correspond to the history of a back mass. This mass was described on the prior CT of 02/09/2016. There are inte rnal septations. It was previously described as a lipomatous mass with liposarcoma not excluded. On today's exam, this mass is enlarged in size when compared to 02/09/2016. It now measures 5.3 cm AP dimension where it previously measured 4.0 cm. This mass measures 12 cm craniocaudal dimension. It begins at the level of the T10 vertebra and extends inferiorly to the level of L2 vertebra. It is c ircumscribed. It continues to have an internal septation which is similar to the prior exam. Osseous structures show degenerative changes in the spine, primarily in the thoracic spine with mild wedging, disk narrowing, and spurring. There is central canal stenosis seen in the lumbar spine whic h appears most pronounced at the L3-4 and L4-5 levels. There has been prior internal fixation of rig ht hip. There are degenerative changes at both hips. IMPRESSION: 1. A large fat density mass involving the paraspinal musculature on the right which has increased in size since 2016. The extent of the mass is described above. 2. Large left renal cyst is stable. 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 3. Probable uterine fibroid. 4. Degenerative spine changes with evidence of central canal stenosis in the lumbar spine. POS: [facility]
[2019-09-21] MEDS ORDERED: Iopamidol 370 76% 100 ML VIAL ONE (12:45)
== END 2019-09-21 08:24 | disposition home or self-care (01) ==
LOC: CT 08:23
PROVIDERS: ATTEND Specialist
DX: R22.2 Localized swelling, mass and lump, trunk (principal); R91.8 Other nonspecific abnormal finding of lung field; Z90.11 Acquired absence of right breast and nipple; N28.1 Cyst of kidney, acquired; D17.71 Benign lipomatous neoplasm of kidney; M47.816 Spondylosis without myelopathy or radiculopathy, lumbar region; M48.061 Spinal stenosis, lumbar region without neurogenic claudication
CPT/HCPCS: 71260; 74177; 82565; Q9967